=== PATIENT | male | born 1955 | race Caucasian/White ===

== ENCOUNTER 2016-09-11 10:45 | Observation (INO) | payer OTHER ==
[~2016-09-11] VITALS: Ht 180.3 cm; Wt 119.9 kg
[2016-09-11 11:45] LABS: HEMOGLOBIN 15.1 gm/dl (14.0-17.5); RED BLOOD COUNT 4.96 M/UL (4.20-5.50); WHITE BLOOD COUNT 10.4 K/UL (4.5-11.0)
[2016-09-11 12:09] LABS: BUN/CREATININE RATIO 27 (0-10)
[2016-09-11] MEDS ORDERED: LIPITOR TAB 2020 MG PO (14:42)
[2016-09-11] MEDS ORDERED: METOPROLOL SUC100 MG PO (14:42)
[2016-09-11] MEDS ORDERED: NORVASC 5 MG TAB5 MG PO (14:42)
[2016-09-11] MEDS ORDERED: HUMALOG MI100 UNIT/3 SQ ×2 (14:43→14:44)
[2016-09-11] MEDS ORDERED: HYGROTON TAB 2525 MG PO (14:45)
[2016-09-11] MEDS ORDERED: OMEPRAZOLE40 MG PO (14:47)
[2016-09-11] MEDS ORDERED: ACCUPRIL10 MG PO (14:47)
[2016-09-11] MEDS ORDERED: MELOXICAM15 MG PO (14:49)
[2016-09-11] MEDS ORDERED: LANTUS SOL100 UNIT/1 SQ (14:50)
[2016-09-11] MEDS ORDERED: GABAPENTIN800 MG PO (14:50)
[2016-09-11] MEDS ORDERED: NIZORAL 2% CREA15 GM TOP (14:55)
[2016-09-11] MEDS ORDERED: ASPIRIN81 MG PO (14:56)
[2016-09-12 05:03] LABS: HEMOGLOBIN 14.9 gm/dl (14.0-17.5); RED BLOOD COUNT 4.93 M/UL (4.20-5.50); WHITE BLOOD COUNT 10.8 K/UL (4.5-11.0)
[2016-09-12 05:23] LABS: BUN/CREATININE RATIO 28 (0-10)
[2016-09-13] MEDS ORDERED: NITROSTAT 0.40.4 MG SL (20:18)
[2016-09-13] MEDS ORDERED: ANTIVERT 25MG T25 MG PO (20:20)
== END 2016-09-13 20:42 | disposition home or self-care (01) ==
LOC: ER1 10:45 → ZEROF 13:32 → MED SURG 4 13:32
PROVIDERS: Emergency Medicine; ADMIT Internal Medicine
DX: R07.9 Chest pain, unspecified (principal); I25.10 Atherosclerotic heart disease of native coronary artery without angina pectoris; E11.9 Type 2 diabetes mellitus without complications; I10 Essential (primary) hypertension; E78.5 Hyperlipidemia, unspecified; M54.5 Low back pain; G89.29 Other chronic pain; E66.9 Obesity, unspecified; M19.90 Unspecified osteoarthritis, unspecified site; Z90.49 Acquired absence of other specified parts of digestive tract; Z88.8 Allergy status to other drugs, medicaments and biological substances; Z79.891 Long term (current) use of opiate analgesic; Z79.4 Long term (current) use of insulin; Z79.899 Other long term (current) drug therapy; Z87.891 Personal history of nicotine dependence
CPT/HCPCS: ECHO; 36415; 70450; 70551; 71010; 78452; 80048; 80053; 80061; 82550; 82553; 82962; 83036; 83735; 83874; 84484; 85025; 93005; 93017; 93306; 96374; 96376; 99285; A9502; G0378; J2270; J2785